=== PATIENT | female | born 1980 | race African-American/Black ===

== ENCOUNTER 2017-11-06 02:27 | Emergency (ER) | payer MEDICAID ==
[~2017-11-06] VITALS: Ht 170.2 cm; Wt 69.0 kg
[~2017-11-06 02:27] MED LIST: ASCO500T20 PO; FERR325T23 PO; FOLI-43 PO; KEPP500 PO; PHEN100C4 PO; THIA100T72 PO; TIZA4TAB4 PO
[2017-11-06] MEDS ORDERED: TETANUS, DIPHTHERIA, PERTUSSIS VAC/PF 0.5ML (>7YR OLD) IM ONE (03:00)
[2017-11-06] MEDS ORDERED: ACETAMINOPHEN 325MG TABLET PO ONE (03:15)
[2017-11-06] MEDS ORDERED: HYDROCODONE/ACETAMINOPHEN 5/325MG TABLET PO ONE ×2 (06:30→08:45)
[2017-11-06 09:10] VITALS: BP 132/101
== END 2017-11-06 09:20 | disposition home or self-care (01) ==
LOC: ER 02:54
DX: S02.2XXA Fracture of nasal bones, initial encounter for closed fracture (principal); S01.21XA Laceration without foreign body of nose, initial encounter; S01.81XA Laceration without foreign body of other part of head, initial encounter; S05.41XA Penetrating wound of orbit with or without foreign body, right eye, initial encounter; S06.339A Contusion and laceration of cerebrum, unspecified, with loss of consciousness of unspecified duration, initial encounter; M79.601 Pain in right arm; H53.8 Other visual disturbances; N28.9 Disorder of kidney and ureter, unspecified; Z88.5 Allergy status to narcotic agent; Z88.6 Allergy status to analgesic agent; Z88.8 Allergy status to other drugs, medicaments and biological substances; Y08.89XA Assault by other specified means, initial encounter; Y93.01 Activity, walking, marching and hiking; Y92.89 Other specified places as the place of occurrence of the external cause; Y99.8 Other external cause status
CPT/HCPCS: 12015; 70450; 70486; 71045; 71250; 72125; 81025; 90471; 90715; 99284; X7700; Z7610

== ENCOUNTER 2017-11-07 07:56 | Emergency (ER) | payer MEDICAID ==
[~2017-11-07] VITALS: Ht 165.1 cm; Wt 71.0 kg
[2017-11-07] MEDS ORDERED: ONDANSETRON 4MG ODT PO ONE (09:15)
[2017-11-07] MEDS ORDERED: MORPHINE SULFATE 10 MG/ML CPJ IM ONE (09:15)
[2017-11-07] MEDS ORDERED: LORAZEPAM 0.5MG TABLET PO ONE (10:15)
[2017-11-07] MEDS ORDERED: HYDROCODONE/ACETAMINOPHEN 10/325MG TABLET PO ONE (11:15)
[2017-11-07 11:45] VITALS: BP 140/91
== END 2017-11-07 11:46 | disposition home or self-care (01) ==
LOC: ER 08:33
DX: R51 Headache (principal); M54.2 Cervicalgia; F43.10 Post-traumatic stress disorder, unspecified; F41.9 Anxiety disorder, unspecified; G40.909 Epilepsy, unspecified, not intractable, without status epilepticus; N28.9 Disorder of kidney and ureter, unspecified; Z90.49 Acquired absence of other specified parts of digestive tract; Z87.19 Personal history of other diseases of the digestive system; Z98.84 Bariatric surgery status; Z88.5 Allergy status to narcotic agent; Y04.0XXA Assault by unarmed brawl or fight, initial encounter
CPT/HCPCS: 96372; 99284; J2270; Q0162; Z7610; A4315

== ENCOUNTER 2018-03-02 19:18 | Emergency (ER) | payer MEDICAID ==
[~2018-03-02] VITALS: Ht 180.3 cm; Wt 109.0 kg
[2018-03-02] MEDS ORDERED: KETOROLAC 60MG/2ML VIAL IM STA (21:23)
[2018-03-02 21:59] LABS: CLARITY URINE CLOUDY (CLEAR); COLOR URINE YELLOW (YELLOW); KETONES URINE TRACE (NEGATIVE); LEUKOCYTE ESTERASE URINE NEGATIVE (NEGATIVE); NITRITE URINE NEGATIVE (NEGATIVE); OCCULT BLOOD URINE NEGATIVE (NEGATIVE); PH URINE 7.5 (4.5-8.0); PROTEIN URINE 1+ (NEGATIVE); SPECIFIC GRAVITY URINE 1.026 (1.005-1.030)
[2018-03-02 22:15] LABS: *BARBITURATES SCREEN URINE NEGATIVE (NEGATIVE); OPIATES URINE SCREEN NEGATIVE (NEGATIVE); PHENCYCLIDINE URINE SCREEN NEGATIVE (NEGATIVE)
[2018-03-02 22:16] LABS: *AMPHETAMINES SCREEN URINE NEGATIVE (NEGATIVE); *BENZODIAZEPINES SCREEN URINE NEGATIVE (NEGATIVE); *COCAINE SCREEN URINE NEGATIVE (NEGATIVE); CANNABINOID URINE SCREEN PRESUMTIVE POSITIVE (NEGATIVE); METHADONE URINE SCREEN NEGATIVE (NEGATIVE)
[2018-03-02 22:17] LABS: BASOPHILS % 1.5 % (0.0-2.0); EOSINOPHILS % 1.1 % (0.0-5.0); HEMATOCRIT. 32.4 % (36.0-48.0); HEMOGLOBIN. 9.9 g/dL (12.0-16.0); LYMPHOCYTES % 41.9 % (20.0-50.0); MEAN CORPUSCULAR HEMOGLOBIN 23.9 pg (28.0-32.0); MEAN CORPUSCULAR VOLUME 77.8 fL (81.0-99.0); MEAN PLATELET VOLUME 8.2 fl (7.4-10.4); NEUTROPHILS % 42.5 % (40.0-76.0); PLATELET 254 x1000/uL (130-400); RED BLOOD CELL COUNT 4.16 mill/uL (4.2-5.4); RED CELL DISTRIBUTION WIDTH 21.6 % (11.6-14.6)
[2018-03-02 22:25] LABS: CHLORIDE 111 mEq/L (98-107)
[2018-03-02 22:31] LABS: ETHANOL BLOOD < 10 mg/dL
[2018-03-02] MEDS ORDERED: HYDROCODONE/ACETAMINOPHEN 5/325MG TABLET PO ONE (23:00)
[2018-03-03 01:38] VITALS: BP 156/84
== END 2018-03-03 01:40 | disposition home or self-care (01) ==
LOC: ER 19:18
DX: M54.5 Low back pain (principal); R10.13 Epigastric pain; R56.9 Unspecified convulsions; Z79.899 Other long term (current) drug therapy; Z88.8 Allergy status to other drugs, medicaments and biological substances; Z88.6 Allergy status to analgesic agent
CPT/HCPCS: 36415; 80053; 80305; 81003; 81025; 83690; 85025; 99283; G0482

== ENCOUNTER 2019-01-22 22:10 | Inpatient (IN) | payer MEDICAID ==
[~2019-01-22] VITALS: Ht 170.2 cm; Wt 94.3 kg
[~2019-01-22 22:10] MED LIST changes: -TIZA4TAB4 PO; +TIZA4TAB5 PO
[2019-01-22] MEDS ORDERED: KETOROLAC 30MG/ML VIAL IV STA (23:54)
[2019-01-23] MEDS ORDERED: VANCOMYCIN 1 G PREMIX 200 ML IV ONE
[2019-01-23] MEDS ORDERED: PIPERACILLIN/TAZ 3.375G PREMIX 50 ML IV ONE
[2019-01-23 01:14] LABS: CLARITY URINE CLEAR (CLEAR); COLOR URINE YELLOW (YELLOW); KETONES URINE NEGATIVE (NEGATIVE); LEUKOCYTE ESTERASE URINE NEGATIVE (NEGATIVE); NITRITE URINE NEGATIVE (NEGATIVE); OCCULT BLOOD URINE NEGATIVE (NEGATIVE); PH URINE 5.5 (4.5-8.0); PROTEIN URINE NEGATIVE (NEGATIVE); SPECIFIC GRAVITY URINE 1.006 (1.005-1.030); UROBILINOGEN URINE 0.2 E.U./dL (0.2-1.0)
[2019-01-23] MEDS ORDERED: HYDROCODONE/ACETAMINOPHEN 5/325MG TABLET PO ONE (01:15)
[2019-01-23] MEDS: SODIUM CHLORIDE 0.9% 1000ML BAG (SEPSIS BOLUS) IV ONE ×2 (01:18)
[2019-01-23 01:23] LABS: CHLORIDE 112 mEq/L (98-107)
[2019-01-23 01:24] LABS: HCG SCREEN NEGATIVE
[2019-01-23 01:26] LABS: BASOPHILS % 0.7 % (0.0-2.0); EOSINOPHILS % 4.5 % (0.0-5.0); HEMATOCRIT. 29.1 % (36.0-48.0); HEMOGLOBIN. 9.4 g/dL (12.0-16.0); LYMPHOCYTES % 36.2 % (20.0-50.0); MEAN CORPUSCULAR HEMOGLOBIN 25.9 pg (28.0-32.0); MEAN CORPUSCULAR VOLUME 80.3 fL (81.0-99.0); MONOCYTES % 12.2 % (2.0-8.0); NEUTROPHILS % 46.4 % (40.0-76.0); PLATELET 285 x1000/uL (130-400); RED BLOOD CELL COUNT 3.63 mill/uL (4.2-5.4)
[2019-01-23 01:29] LABS: ETHANOL BLOOD < 10 mg/dL
[2019-01-23 01:31] LABS: *BARBITURATES SCREEN URINE NEGATIVE (NEGATIVE)
[2019-01-23 01:32] LABS: *AMPHETAMINES SCREEN URINE NEGATIVE (NEGATIVE); *COCAINE SCREEN URINE NEGATIVE (NEGATIVE); METHADONE URINE SCREEN NEGATIVE (NEGATIVE); OPIATES URINE SCREEN NEGATIVE (NEGATIVE); PHENCYCLIDINE URINE SCREEN NEGATIVE (NEGATIVE)
[2019-01-23 01:33] LABS: CANNABINOID URINE SCREEN NEGATIVE (NEGATIVE)
[2019-01-23 01:35] LABS: *BENZODIAZEPINES SCREEN URINE PRESUMTIVE POSITIVE (NEGATIVE)
[2019-01-23 01:39] LABS: INR 1.1; PROTHROMBIN TIME 11.1 sec (9.6-11.0)
[2019-01-23 02:27] LABS: PLATELET ESTIMATE NORMAL
[2019-01-23] MEDS: HYDROCODONE/ACETAMINOPHEN 10/325MG TABLET PO PRN ×3 (05:50→19:56)
[2019-01-23] MEDS ORDERED: IPRATROPIUM/ALBUTEROL 0.5-3(2.5)MG/3ML NEB HHN PRN (07:00)
[2019-01-23] MEDS ORDERED: ONDANSETRON HCL 4MG/2ML INJ IV PRN (07:00)
[2019-01-23] MEDS ORDERED: CLONIDINE 0.1MG TABLET PO PRN (07:00)
[2019-01-23] MEDS ORDERED: MAGNESIUM/ALUMINUM HYDROXIDE/SIMETHICONE 30ML UDC PO PRN (07:00)
[2019-01-23 07:45] LABS: PHOSPHORUS 3.2 mg/dL (2.5-4.9)
[2019-01-23] MEDS ORDERED: PIPERACILLIN/TAZ 3.375G PREMIX 50 ML IV SCH (09:00)
[2019-01-23 10:00] VITALS: BP 147/84
[2019-01-23] MEDS: DIPHENHYDRAMINE 50MG/ML VIAL IV PRN ×2 (11:00→16:04)
[2019-01-23 11:10] VITALS: BP 147/84
[2019-01-23] MEDS: MORPHINE SULFATE 2 MG/ML CPJ (NOT FOR IM USE) IV PRN ×2 (11:34→16:37)
[2019-01-23] MEDS: PIPERACILLIN/TAZOBACTAM 3.375 G in DEXT 5% WATER 100 ML IV SCH ×2 (13:24→17:33)
[2019-01-23] MEDS: VANCOMYCIN 1250MG in DEXTROSE 5% WATER 250ML IV SCH (14:32)
[2019-01-23] MEDS: LEVETIRACETAM 500MG TABLET PO SCH (14:32)
[2019-01-23 16:00] VITALS: BP 148/82
[2019-01-23] MEDS ORDERED: APIX5TAB MT (18:39)
[2019-01-23] MEDS ORDERED: LEVE750T10 MT (18:39)
[2019-01-23] MEDS ORDERED: PANT40TA4 MT (18:39)
[2019-01-23] MEDS ORDERED: TIZA4CAP6 MT (18:39)
[2019-01-23] MEDS ORDERED: GABA-531 MT (18:39)
[2019-01-23] MEDS ORDERED: FOLI-43 MT (18:39)
[2019-01-23] MEDS ORDERED: TOPUD MT (18:39)
[2019-01-23] MEDS ORDERED: CHLO25CA10 MT (18:39)
[2019-01-23] MEDS ORDERED: OXYC-105 MT (18:39)
[2019-01-23] MEDS ORDERED: THIA50TA11 MT (18:39)
[2019-01-23] MEDS ORDERED: ZOLP5TAB8 MT (18:39)
[2019-01-23] MEDS ORDERED: DIPH25CA83 MT (18:39)
[2019-01-23] MEDS ORDERED: FURO-151 MT (18:39)
[2019-01-23] MEDS ORDERED: POTA20TA82 MT (18:39)
[2019-01-23 19:54] VITALS: BP 153/99
[2019-01-23 20:00] VITALS: BP 153/99
[2019-01-23] MEDS: GABAPENTIN 300MG CAPSULE PO SCH (21:27)
[2019-01-24] VITALS (7 sets, daily range): BP systolic 97–158; BP diastolic 56–98
[2019-01-24] MEDS: PIPERACILLIN/TAZOBACTAM 3.375 G in DEXT 5% WATER 100 ML IV SCH ×4 (00:07→17:27)
[2019-01-24] MEDS: DIPHENHYDRAMINE 50MG/ML VIAL IV PRN ×3 (00:21→18:11)
[2019-01-24] MEDS: MORPHINE SULFATE 2 MG/ML CPJ (NOT FOR IM USE) IV PRN ×3 (00:21→18:46)
[2019-01-24] MEDS: VANCOMYCIN 1250MG in DEXTROSE 5% WATER 250ML IV SCH ×2 (01:16→14:43)
[2019-01-24] MEDS: GABAPENTIN 300MG CAPSULE PO SCH ×3 (06:44→21:39)
[2019-01-24 07:14] LABS: BASOPHILS % 0.9 % (0.0-2.0); EOSINOPHILS % 6.3 % (0.0-5.0); HEMATOCRIT. 31.4 % (36.0-48.0); LYMPHOCYTES % 34.1 % (20.0-50.0); MEAN CORPUSCULAR VOLUME 81.3 fL (81.0-99.0); MEAN PLATELET VOLUME 7.8 fl (7.4-10.4); MONOCYTES % 9.8 % (2.0-8.0); NEUTROPHILS % 48.9 % (40.0-76.0); PLATELET 309 x1000/uL (130-400); RED BLOOD CELL COUNT 3.86 mill/uL (4.2-5.4); RED CELL DISTRIBUTION WIDTH 24.8 % (11.6-14.6)
[2019-01-24 07:31] LABS: CHLORIDE 113 mEq/L (98-107)
[2019-01-24 07:46] LABS: HDL CHOLESTEROL 47 mg/dL (40-59)
[2019-01-24 07:48] LABS: LDL CHOLESTEROL 80 mg/dL (5-100)
[2019-01-24] MEDS: LEVETIRACETAM 500MG TABLET PO SCH (08:41)
[2019-01-24] MEDS: TIZANIDINE HCL 2MG TABLET PO PRN ×2 (08:42→21:39)
[2019-01-24] MEDS: HYDROCODONE/ACETAMINOPHEN 10/325MG TABLET PO PRN ×3 (08:42→21:02)
[2019-01-24] MEDS: ACETAMINOPHEN 325MG TABLET PO PRN (18:11)
[2019-01-25] VITALS: BP 104/63
[2019-01-25] MEDS: VANCOMYCIN 1250MG in DEXTROSE 5% WATER 250ML IV SCH (01:47)
[2019-01-25] MEDS: PIPERACILLIN/TAZOBACTAM 3.375 G in DEXT 5% WATER 100 ML IV SCH ×4 (01:48→18:18)
[2019-01-25 04:00] VITALS: BP 98/74
[2019-01-25] MEDS: DIPHENHYDRAMINE 50MG/ML VIAL IV PRN ×5 (04:22→21:53)
[2019-01-25] MEDS: ACETAMINOPHEN 325MG TABLET PO PRN ×3 (04:23→19:02)
[2019-01-25] MEDS: MORPHINE SULFATE 2 MG/ML CPJ (NOT FOR IM USE) IV PRN ×3 (04:32→19:13)
[2019-01-25] MEDS: GABAPENTIN 300MG CAPSULE PO SCH ×3 (05:16→22:21)
[2019-01-25 07:05] LABS: BASOPHILS % 0.5 % (0.0-2.0); EOSINOPHILS % 6.2 % (0.0-5.0); HEMATOCRIT. 30.2 % (36.0-48.0); HEMOGLOBIN. 9.5 g/dL (12.0-16.0); MEAN CORPUSCULAR HEMOGLOBIN 25.8 pg (28.0-32.0); MEAN CORPUSCULAR VOLUME 81.5 fL (81.0-99.0); MEAN PLATELET VOLUME 8.1 fl (7.4-10.4); MONOCYTES % 10.2 % (2.0-8.0); NEUTROPHILS % 50.1 % (40.0-76.0); PLATELET 289 x1000/uL (130-400); RED CELL DISTRIBUTION WIDTH 24.5 % (11.6-14.6)
[2019-01-25 07:33] LABS: CHLORIDE 109 mEq/L (98-107)
[2019-01-25 08:00] VITALS: BP 105/43
[2019-01-25] MEDS: LEVETIRACETAM 500MG TABLET PO SCH (08:26)
[2019-01-25] MEDS: HYDROCODONE/ACETAMINOPHEN 10/325MG TABLET PO PRN ×2 (08:28→16:21)
[2019-01-25 12:00] VITALS: BP 106/71
[2019-01-25] MEDS: HYDROMORPHONE HCL/PF 2MG/ML CPJ IV PRN ×2 (14:45→21:52)
[2019-01-25 16:00] VITALS: BP 109/64
[2019-01-25] MEDS: VANCOMYCIN 750 MG PREMIX 150 ML IV SCH (21:04)
[2019-01-25] MEDS: TIZANIDINE HCL 2MG TABLET PO PRN (22:21)
[2019-01-26] VITALS: BP 90/49
[2019-01-26] MEDS: PIPERACILLIN/TAZOBACTAM 3.375 G in DEXT 5% WATER 100 ML IV SCH ×5 (00:21→23:15)
[2019-01-26 04:00] VITALS: BP 101/59
[2019-01-26] MEDS: HYDROCODONE/ACETAMINOPHEN 10/325MG TABLET PO PRN ×3 (04:51→19:44)
[2019-01-26] MEDS: GABAPENTIN 300MG CAPSULE PO SCH ×3 (06:03→22:11)
[2019-01-26 06:31] LABS: CHLORIDE 111 mEq/L (98-107)
[2019-01-26 06:42] LABS: BASOPHILS % 0.9 % (0.0-2.0); EOSINOPHILS % 6.6 % (0.0-5.0); HEMATOCRIT. 27.7 % (36.0-48.0); LYMPHOCYTES % 31.1 % (20.0-50.0); MEAN CORPUSCULAR HEMOGLOBIN 26.4 pg (28.0-32.0); MEAN CORPUSCULAR VOLUME 81.1 fL (81.0-99.0); MEAN PLATELET VOLUME 7.8 fl (7.4-10.4); MONOCYTES % 8.7 % (2.0-8.0); NEUTROPHILS % 52.7 % (40.0-76.0); PLATELET 293 x1000/uL (130-400); RED BLOOD CELL COUNT 3.41 mill/uL (4.2-5.4); RED CELL DISTRIBUTION WIDTH 24.3 % (11.6-14.6)
[2019-01-26 08:00] VITALS: BP_SYST 103; BP_SYST 109; BP_DIAS 71
[2019-01-26] MEDS: DIPHENHYDRAMINE 50MG/ML VIAL IV PRN ×4 (08:54→22:11)
[2019-01-26] MEDS: HYDROMORPHONE HCL/PF 2MG/ML CPJ IV PRN ×4 (08:54→22:12)
[2019-01-26] MEDS: VANCOMYCIN 750 MG PREMIX 150 ML IV SCH ×2 (08:57→20:07)
[2019-01-26] MEDS: LEVETIRACETAM 500MG TABLET PO SCH (08:58)
[2019-01-26 12:00] VITALS: BP 109/71
[2019-01-26 16:00] VITALS: BP 114/66
[2019-01-26 20:00] VITALS: BP 119/72
[2019-01-26] MEDS: TIZANIDINE HCL 2MG TABLET PO PRN (22:12)
[2019-01-27] VITALS: BP 94/53
[2019-01-27] MEDS: HYDROMORPHONE HCL/PF 2MG/ML CPJ IV PRN ×4 (02:59→21:35)
[2019-01-27 04:00] VITALS: BP 98/59
[2019-01-27] MEDS: GABAPENTIN 300MG CAPSULE PO SCH ×3 (05:23→20:30)
[2019-01-27] MEDS: HYDROCODONE/ACETAMINOPHEN 10/325MG TABLET PO PRN ×4 (05:23→20:30)
[2019-01-27] MEDS: PIPERACILLIN/TAZOBACTAM 3.375 G in DEXT 5% WATER 100 ML IV SCH (05:23)
[2019-01-27 08:00] VITALS: BP 95/59
[2019-01-27] MEDS: LEVETIRACETAM 500MG TABLET PO SCH (08:41)
[2019-01-27] MEDS: DIPHENHYDRAMINE 50MG/ML VIAL IV PRN ×3 (10:03→21:35)
[2019-01-27] MEDS: VANCOMYCIN 750 MG PREMIX 150 ML IV SCH ×2 (11:07→20:30)
[2019-01-27 12:00] VITALS: BP 110/69
[2019-01-27 16:30] VITALS: BP 117/76
[2019-01-27] MEDS ORDERED: HYDROMORPHONE HCL/PF 2MG/ML CPJ IM PRN (18:00)
[2019-01-27 20:00] VITALS: BP 107/75
[2019-01-27] MEDS: TIZANIDINE HCL 2MG TABLET PO PRN (22:40)
[2019-01-28] VITALS: BP 99/57
[2019-01-28 04:01] VITALS: BP 106/61
[2019-01-28] MEDS: GABAPENTIN 300MG CAPSULE PO SCH ×3 (05:05→21:13)
[2019-01-28] MEDS: DIPHENHYDRAMINE 50MG/ML VIAL IV PRN ×5 (05:05→21:44)
[2019-01-28] MEDS: HYDROMORPHONE HCL/PF 2MG/ML CPJ IV PRN ×5 (05:06→21:45)
[2019-01-28 08:00] VITALS: BP 110/60
[2019-01-28] MEDS: VANCOMYCIN 750 MG PREMIX 150 ML IV SCH ×2 (08:01→21:43)
[2019-01-28] MEDS: LEVETIRACETAM 500MG TABLET PO SCH (09:10)
[2019-01-28] MEDS: HYDROCODONE/ACETAMINOPHEN 10/325MG TABLET PO PRN ×3 (11:41→20:12)
[2019-01-28 12:00] VITALS: BP 112/70
[2019-01-28 15:52] VITALS: BP 122/70
[2019-01-28 20:09] VITALS: BP 147/97
[2019-01-28] MEDS: TIZANIDINE HCL 2MG TABLET PO PRN (21:42)
[2019-01-29 00:23] VITALS: BP 98/60
[2019-01-29 04:00] VITALS: BP 116/69
[2019-01-29] MEDS: DIPHENHYDRAMINE 50MG/ML VIAL IV PRN ×5 (04:11→21:41)
[2019-01-29] MEDS: HYDROMORPHONE HCL/PF 2MG/ML CPJ IV PRN ×5 (04:12→21:41)
[2019-01-29] MEDS: GABAPENTIN 300MG CAPSULE PO SCH ×3 (05:37→21:41)
[2019-01-29] MEDS: HYDROCODONE/ACETAMINOPHEN 10/325MG TABLET PO PRN ×4 (06:02→18:36)
[2019-01-29 08:00] VITALS: BP 119/79
[2019-01-29] MEDS: LEVETIRACETAM 500MG TABLET PO SCH (08:36)
[2019-01-29] MEDS: VANCOMYCIN 750 MG PREMIX 150 ML IV SCH ×2 (10:10→21:41)
[2019-01-29 11:42] LABS: BASOPHILS % 0.9 % (0.0-2.0); EOSINOPHILS % 5.1 % (0.0-5.0); HEMATOCRIT. 31.3 % (36.0-48.0); HEMOGLOBIN. 10.2 g/dL (12.0-16.0); LYMPHOCYTES % 41.4 % (20.0-50.0); MEAN CORPUSCULAR HEMOGLOBIN 26.4 pg (28.0-32.0); MEAN CORPUSCULAR VOLUME 81.2 fL (81.0-99.0); MONOCYTES % 13.3 % (2.0-8.0); NEUTROPHILS % 39.3 % (40.0-76.0); PLATELET 338 x1000/uL (130-400); RED BLOOD CELL COUNT 3.86 mill/uL (4.2-5.4); RED CELL DISTRIBUTION WIDTH 23.7 % (11.6-14.6)
[2019-01-29 12:00] VITALS: BP 137/83
[2019-01-29 16:00] VITALS: BP_SYST 119; BP_SYST 135; BP_DIAS 76; BP_DIAS 79
[2019-01-29 20:00] VITALS: BP 123/81
[2019-01-30 01:12] VITALS: BP 128/80
[2019-01-30] MEDS: DIPHENHYDRAMINE 50MG/ML VIAL IV PRN ×3 (01:15→10:23)
[2019-01-30] MEDS: TIZANIDINE HCL 2MG TABLET PO PRN (01:15)
[2019-01-30] MEDS: HYDROMORPHONE HCL/PF 2MG/ML CPJ IV PRN ×3 (01:15→10:24)
[2019-01-30 04:00] VITALS: BP 100/64
[2019-01-30] MEDS: GABAPENTIN 300MG CAPSULE PO SCH ×2 (06:09→13:31)
[2019-01-30 08:00] VITALS: BP 110/74
[2019-01-30] MEDS: LEVETIRACETAM 500MG TABLET PO SCH (09:08)
[2019-01-30 12:00] VITALS: BP 124/78
[2019-01-30] MEDS ORDERED: AMOX1TAB16 PO (14:14)
[2019-01-30] MEDS ORDERED: DOXY100C2 PO (14:14)
[2019-01-30] MEDS ORDERED: DOXYCYCLINE HYCLATE 100MG CAPSULE PO SCH (14:30)
[2019-01-30] MEDS ORDERED: HYDROCODONE/ACETAMINOPHEN 10/325MG TABLET PO PRN (14:45)
[2019-01-30 15:52] VITALS: BP 124/78
[2019-01-30 16:00] VITALS: BP 129/74
[2019-01-30] MEDS ORDERED: AMOXICILLIN/POTASSIUM CLAVULANATE 875/125MG TAB PO SCH (21:00)
== END 2019-01-30 18:50 | DRG 383 ==
LOC: ER 22:10 → 8WST 01-23 02:03 → EDBEDREQ 01-23 02:09 → EDBEDREQTM 01-23 02:09 → EDBEDREQDT 01-23 02:09 → ENRESERV 01-23 07:32
PROVIDERS: ADMIT Internal Medicine; ATTEND Internal Medicine
DX: L03.116 Cellulitis of left lower limb (principal); E44.0 Moderate protein-calorie malnutrition; K86.1 Other chronic pancreatitis; M10.9 Gout, unspecified; D50.9 Iron deficiency anemia, unspecified; F11.99 Opioid use, unspecified with unspecified opioid-induced disorder; G40.909 Epilepsy, unspecified, not intractable, without status epilepticus; F32.9 Major depressive disorder, single episode, unspecified; Z84.1 Family history of disorders of kidney and ureter; Z74.01 Bed confinement status; Z98.84 Bariatric surgery status; Z79.2 Long term (current) use of antibiotics; Z79.899 Other long term (current) drug therapy; Z88.8 Allergy status to other drugs, medicaments and biological substances; Z88.6 Allergy status to analgesic agent; Z98.891 History of uterine scar from previous surgery
CPT/HCPCS: 36415; 71045; 73590; 73630; 73700; 80048; 80053; 80061; 80202; 80305; 80320; 81003; 83605; 83735; 84100; 84145; 84443; 84703; 85025; 85651; 86140; 86850; 86900; 93005; 93970; 96365; 96366; 96375; 97116; 97162; 97166; 97535; 99291; A6261; C1893; J1170; J1200; J1885; J2270; J2543; J3370; J7030; J7040; J7060; G0480

== ENCOUNTER 2019-07-15 16:13 | Emergency (ER) | payer MEDICAID ==
[~2019-07-15] VITALS: Ht 170.2 cm; Wt 86.0 kg
[~2019-07-15 16:13] MED LIST changes: +AMOX1TAB16 PO; +APIX5TAB MT; +CHLO25CA10 MT; +DIPH25CA83 MT; +DOXY100C2 PO; +FOLI-43 MT; +FURO-151 MT; +GABA-531 MT; +OXYC-105 MT; +PANT40TA4 MT; +POTA20TA82 MT; +THIA50TA11 MT; +TIZA4CAP6 MT; +TOPUD MT; +ZOLP5TAB8 MT
[2019-07-15] MEDS ORDERED: ACETAMINOPHEN 325MG TABLET PO STA (17:14)
[2019-07-15] MEDS ORDERED: LEVETIRACETAM 250MG TABLET PO ONE (17:15)
[2019-07-15] MEDS ORDERED: LEVETIRACETAM 500MG TABLET PO NR (17:30)
[2019-07-15] MEDS ORDERED: HYDROCODONE/ACETAMINOPHEN 5/325MG TABLET PO ONE ×2 (18:30→19:45)
[2019-07-15 18:41] LABS: CHLORIDE 112 mEq/L (98-107)
[2019-07-15 18:42] LABS: BASOPHILS % 0.5 % (0.0-2.0); EOSINOPHILS % 2.2 % (0.0-5.0); HEMATOCRIT. 34.8 % (36.0-48.0); HEMOGLOBIN. 11.2 g/dL (12.0-16.0); LYMPHOCYTES % 36.5 % (20.0-50.0); MEAN CORPUSCULAR HEMOGLOBIN 27.6 pg (28.0-32.0); MEAN CORPUSCULAR VOLUME 85.7 fL (81.0-99.0); MEAN PLATELET VOLUME 8.1 fl (7.4-10.4); MONOCYTES % 9.3 % (2.0-8.0); NEUTROPHILS % 51.5 % (40.0-76.0); PLATELET 287 x1000/uL (130-400); RED BLOOD CELL COUNT 4.07 mill/uL (4.2-5.4); RED CELL DISTRIBUTION WIDTH 18.6 % (11.6-14.6)
[2019-07-15 18:44] LABS: HCG SCREEN NEGATIVE
[2019-07-15] MEDS ORDERED: PHENYTOIN SODIUM EXTENDED 100MG CAPSULE PO ONE (19:00)
[2019-07-15 20:07] VITALS: BP 144/83
== END 2019-07-15 20:26 | disposition home or self-care (01) ==
LOC: ER 16:13
DX: S93.492A Sprain of other ligament of left ankle, initial encounter (principal); R56.9 Unspecified convulsions; X58.XXXA Exposure to other specified factors, initial encounter; Y93.89 Activity, other specified; Y92.89 Other specified places as the place of occurrence of the external cause; Y99.8 Other external cause status; F32.9 Major depressive disorder, single episode, unspecified; F14.10 Cocaine abuse, uncomplicated; F12.10 Cannabis abuse, uncomplicated; Z98.890 Other specified postprocedural states; Z79.899 Other long term (current) drug therapy; Z88.6 Allergy status to analgesic agent; Z88.5 Allergy status to narcotic agent
CPT/HCPCS: 36415; 73610; 80053; 80185; 84703; 85025; 93005; 99285

== ENCOUNTER 2019-08-21 04:54 | Emergency (ER) | payer MEDICAID ==
[~2019-08-21] VITALS: Ht 170.2 cm; Wt 79.0 kg
[2019-08-21] MEDS ORDERED: HYDROCODONE/ACETAMINOPHEN 5/325MG TABLET PO ONE (05:00)
[2019-08-21] MEDS ORDERED: METHOCARBAMOL 750MG TABLET PO SCH (05:15)
[2019-08-21 07:35] VITALS: BP 148/78
== END 2019-08-21 07:38 | disposition home or self-care (01) ==
LOC: ER 04:54
DX: S09.90XA Unspecified injury of head, initial encounter (principal); I10 Essential (primary) hypertension; Z79.899 Other long term (current) drug therapy; Z88.6 Allergy status to analgesic agent; W01.0XXA Fall on same level from slipping, tripping and stumbling without subsequent striking against object, initial encounter; Y93.89 Activity, other specified; Y92.89 Other specified places as the place of occurrence of the external cause; Y99.8 Other external cause status
CPT/HCPCS: 72100; 81025; 99283

== ENCOUNTER 2019-08-21 07:22 | Emergency (ER) | payer MEDICAID ==
[~2019-08-21] VITALS: Ht 170.2 cm; Wt 100.0 kg
[2019-08-21] MEDS ORDERED: ACETAMINOPHEN 325MG TABLET PO STA (08:36)
[2019-08-21] MEDS ORDERED: SODIUM CHLORIDE 0.9% 1,000 ML IV ONE (08:36)
[2019-08-21] MEDS ORDERED: LEVETIRACETAM 500MG PREMIX 100 ML IV ONE (08:45)
[2019-08-21 09:15] LABS: BASOPHILS % 1.8 % (0.0-2.0); EOSINOPHILS % 2.8 % (0.0-5.0); HEMATOCRIT. 31.8 % (36.0-48.0); HEMOGLOBIN. 10.3 g/dL (12.0-16.0); LYMPHOCYTES % 43.3 % (20.0-50.0); MEAN CORPUSCULAR HEMOGLOBIN 27.3 pg (28.0-32.0); MEAN CORPUSCULAR VOLUME 84.7 fL (81.0-99.0); MEAN PLATELET VOLUME 8.1 fl (7.4-10.4); MONOCYTES % 10.9 % (2.0-8.0); NEUTROPHILS % 41.2 % (40.0-76.0); PLATELET 256 x1000/uL (130-400); RED BLOOD CELL COUNT 3.76 mill/uL (4.2-5.4); RED CELL DISTRIBUTION WIDTH 17.6 % (11.6-14.6)
[2019-08-21 09:17] LABS: CHLORIDE 111 mEq/L (98-107)
[2019-08-21 09:20] LABS: ETHANOL BLOOD 28 mg/dL
[2019-08-21] MEDS ORDERED: LEVETIRACETAM 500MG TABLET PO ONE (09:30)
[2019-08-21 09:51] LABS: *BARBITURATES SCREEN URINE NEGATIVE (NEGATIVE); *BENZODIAZEPINES SCREEN URINE NEGATIVE (NEGATIVE); METHADONE URINE SCREEN NEGATIVE (NEGATIVE)
[2019-08-21 09:52] LABS: *AMPHETAMINES SCREEN URINE NEGATIVE (NEGATIVE); PHENCYCLIDINE URINE SCREEN NEGATIVE (NEGATIVE)
[2019-08-21 09:54] LABS: *COCAINE SCREEN URINE PRESUMTIVE POSITIVE (NEGATIVE); CANNABINOID URINE SCREEN PRESUMTIVE POSITIVE (NEGATIVE); OPIATES URINE SCREEN PRESUMTIVE POSITIVE (NEGATIVE)
[2019-08-21 10:33] VITALS: BP 178/111
[2019-08-21] MEDS ORDERED: PHENYTOIN SODIUM EXTENDED 100MG CAPSULE PO ONE (10:45)
[2019-08-21] MEDS ORDERED: POTASSIUM CHLORIDE 20MEQ TABLET SR PO ONE (10:45)
== END 2019-08-21 10:53 | disposition home or self-care (01) ==
LOC: ER 07:22
DX: R56.9 Unspecified convulsions (principal); M25.572 Pain in left ankle and joints of left foot; I10 Essential (primary) hypertension; Z79.899 Other long term (current) drug therapy
CPT/HCPCS: 36415; 73610; 80053; 80185; 80305; 80320; 81025; 85025; 93005; 99285; J7030; G0480

== ENCOUNTER 2019-12-14 12:57 | Emergency (ER) | payer MEDICAID ==
[~2019-12-14] VITALS: Ht 165.1 cm; Wt 60.0 kg
[2019-12-14] MEDS ORDERED: ACETAMINOPHEN 325MG TABLET PO ONE (13:45)
[2019-12-14] MEDS ORDERED: ONDANSETRON HCL 4MG/2ML INJ IV STA (13:53)
[2019-12-14] MEDS ORDERED: PANTOPRAZOLE SODIUM 40 MG/VIAL IV ONE (14:00)
[2019-12-14] MEDS ORDERED: SODIUM CHLORIDE 0.9% 1,000 ML IV ONE (14:00)
[2019-12-14 14:53] LABS: BASOPHILS % 0.8 % (0.0-2.0); EOSINOPHILS % 3.2 % (0.0-5.0); HEMATOCRIT. 27.4 % (36.0-48.0); LYMPHOCYTES % 50.4 % (20.0-50.0); MEAN CORPUSCULAR HEMOGLOBIN 31.8 pg (28.0-32.0); MEAN CORPUSCULAR VOLUME 96.4 fL (81.0-99.0); MEAN PLATELET VOLUME 6.8 fl (7.4-10.4); MONOCYTES % 10.6 % (2.0-8.0); PLATELET 326 x1000/uL (130-400); RED BLOOD CELL COUNT 2.84 mill/uL (4.2-5.4); RED CELL DISTRIBUTION WIDTH 19.8 % (11.6-14.6)
[2019-12-14 14:58] LABS: CHLORIDE 114 mEq/L (98-107)
[2019-12-14 15:00] LABS: INR 1.1; PROTHROMBIN TIME 11.9 sec (9.6-11.0)
[2019-12-14 15:24] LABS: CLARITY URINE CLEAR (CLEAR); COLOR URINE DARK YELLOW (YELLOW); KETONES URINE NEGATIVE (NEGATIVE); LEUKOCYTE ESTERASE URINE NEGATIVE (NEGATIVE); NITRITE URINE NEGATIVE (NEGATIVE); OCCULT BLOOD URINE NEGATIVE (NEGATIVE); PROTEIN URINE TRACE (NEGATIVE); SPECIFIC GRAVITY URINE 1.044 (1.005-1.030)
[2019-12-14] MEDS ORDERED: ACETAMINOPHEN 325MG TABLET PO SCH (15:30)
[2019-12-14] MEDS ORDERED: HYDROCODONE/ACETAMINOPHEN 5/325MG TABLET PO STA ×2 (15:37→17:06)
[2019-12-14] MEDS ORDERED: GABAPENTIN 300MG CAPSULE PO STA (18:54)
[2019-12-14 19:04] VITALS: BP 112/70
== END 2019-12-14 19:25 | disposition home or self-care (01) ==
LOC: ER 12:57
DX: R10.13 Epigastric pain (principal); D64.9 Anemia, unspecified; I10 Essential (primary) hypertension; K21.9 Gastro-esophageal reflux disease without esophagitis; Z88.6 Allergy status to analgesic agent; Z79.899 Other long term (current) drug therapy
CPT/HCPCS: 36415; 71045; 76705; 80053; 81003; 81025; 82270; 83690; 85025; 85610; 96374; 96375; 99285; C9113; J2405; J7030

== ENCOUNTER 2019-12-25 09:12 | Emergency (ER) | payer MEDICAID ==
[~2019-12-25] VITALS: Ht 172.7 cm; Wt 86.0 kg
[2019-12-25] MEDS ORDERED: HYDROCODONE/ACETAMINOPHEN 5/325MG TABLET PO ONE (10:00)
[2019-12-25] MEDS ORDERED: LEVETIRACETAM 500MG PREMIX 100 ML IV ONE (10:00)
[2019-12-25 11:40] LABS: BASOPHILS % 0.3 % (0.0-2.0); EOSINOPHILS % 1.1 % (0.0-5.0); HEMATOCRIT. 28.3 % (36.0-48.0); HEMOGLOBIN. 9.2 g/dL (12.0-16.0); LYMPHOCYTES % 21.4 % (20.0-50.0); MEAN CORPUSCULAR HEMOGLOBIN 32.4 pg (28.0-32.0); MEAN CORPUSCULAR VOLUME 100.1 fL (81.0-99.0); MEAN PLATELET VOLUME 7.9 fl (7.4-10.4); MONOCYTES % 6.3 % (2.0-8.0); NEUTROPHILS % 70.9 % (40.0-76.0); PLATELET 199 x1000/uL (130-400); RED BLOOD CELL COUNT 2.83 mill/uL (4.2-5.4); RED CELL DISTRIBUTION WIDTH 17.1 % (11.6-14.6)
[2019-12-25 11:42] LABS: CHLORIDE 115 mEq/L (98-107)
[2019-12-25] MEDS ORDERED: POTASSIUM CHLORIDE 20MEQ TABLET SR PO ONE (12:00)
[2019-12-25 12:15] LABS: HCG SCREEN NEGATIVE
[2019-12-25 13:54] VITALS: BP 137/83
== END 2019-12-25 13:54 | disposition home or self-care (01) ==
LOC: ER 09:12
DX: S93.402A Sprain of unspecified ligament of left ankle, initial encounter (principal); R56.9 Unspecified convulsions; M54.5 Low back pain; E87.6 Hypokalemia; I10 Essential (primary) hypertension; Z88.6 Allergy status to analgesic agent; Z79.899 Other long term (current) drug therapy; Z88.8 Allergy status to other drugs, medicaments and biological substances; W18.30XA Fall on same level, unspecified, initial encounter; Y93.89 Activity, other specified; Y92.89 Other specified places as the place of occurrence of the external cause; Y99.8 Other external cause status
CPT/HCPCS: 36415; 72100; 73610; 80053; 84703; 85025; 93005; 96365; 99285; J1953

== ENCOUNTER 2020-02-11 12:49 | Emergency (ER) | payer MEDICAID ==
[~2020-02-11] VITALS: Ht 175.3 cm; Wt 82.0 kg
[2020-02-11 12:55] VITALS: BP 112/64
[2020-02-11] MEDS ORDERED: FAMOTIDINE 20MG/2ML VIAL IV STA (14:20)
[2020-02-11] MEDS ORDERED: ONDANSETRON HCL 4MG/2ML INJ IV STA (14:20)
[2020-02-11 14:25] LABS: CHLORIDE 116 mEq/L (98-107)
[2020-02-11 14:27] LABS: BASOPHILS % 0.9 % (0.0-2.0); EOSINOPHILS % 0.1 % (0.0-5.0); HEMATOCRIT. 34.6 % (36.0-48.0); HEMOGLOBIN. 11.2 g/dL (12.0-16.0); MEAN CORPUSCULAR HEMOGLOBIN 31.2 pg (28.0-32.0); MEAN CORPUSCULAR VOLUME 96.3 fL (81.0-99.0); MEAN PLATELET VOLUME 8.1 fl (7.4-10.4); PLATELET 302 x1000/uL (130-400); RED BLOOD CELL COUNT 3.59 mill/uL (4.2-5.4)
[2020-02-11 14:28] LABS: ETHANOL BLOOD 207 mg/dL
[2020-02-11] MEDS ORDERED: SODIUM CHLORIDE 0.9% 1,000 ML IV ONE (14:30)
[2020-02-11 14:38] LABS: HCG SCREEN NEGATIVE
[2020-02-11 14:41] LABS: INR 1.1; PROTHROMBIN TIME 11.5 sec (9.6-11.0)
[2020-02-11 14:43] LABS: CLARITY URINE CLOUDY (CLEAR); COLOR URINE DARK YELLOW (YELLOW); KETONES URINE NEGATIVE (NEGATIVE); LEUKOCYTE ESTERASE URINE NEGATIVE (NEGATIVE); NITRITE URINE NEGATIVE (NEGATIVE); OCCULT BLOOD URINE NEGATIVE (NEGATIVE); PROTEIN URINE 1+ (NEGATIVE); SPECIFIC GRAVITY URINE 1.028 (1.005-1.030)
[2020-02-11 15:08] LABS: *AMPHETAMINES SCREEN URINE NEGATIVE (NEGATIVE); *BARBITURATES SCREEN URINE NEGATIVE (NEGATIVE); *BENZODIAZEPINES SCREEN URINE NEGATIVE (NEGATIVE); *COCAINE SCREEN URINE NEGATIVE (NEGATIVE)
[2020-02-11 15:09] LABS: CANNABINOID URINE SCREEN NEGATIVE (NEGATIVE); METHADONE URINE SCREEN NEGATIVE (NEGATIVE); PHENCYCLIDINE URINE SCREEN NEGATIVE (NEGATIVE)
[2020-02-11 15:22] LABS: OPIATES URINE SCREEN PRESUMTIVE POSITIVE (NEGATIVE)
== END 2020-02-11 15:00 | disposition left against medical advice (07) ==
LOC: ER 12:49
DX: R10.13 Epigastric pain (principal); R11.10 Vomiting, unspecified; K21.9 Gastro-esophageal reflux disease without esophagitis; I12.9 Hypertensive chronic kidney disease with stage 1 through stage 4 chronic kidney disease, or unspecified chronic kidney disease; N18.9 Chronic kidney disease, unspecified; G40.909 Epilepsy, unspecified, not intractable, without status epilepticus; F12.10 Cannabis abuse, uncomplicated; F10.10 Alcohol abuse, uncomplicated; Y90.7 Blood alcohol level of 200-239 mg/100 ml; Z86.73 Personal history of transient ischemic attack (TIA), and cerebral infarction without residual deficits; Z98.84 Bariatric surgery status; Z88.6 Allergy status to analgesic agent; Z88.5 Allergy status to narcotic agent; Z88.8 Allergy status to other drugs, medicaments and biological substances
CPT/HCPCS: 36415; 80053; 80305; 80320; 81003; 83690; 84484; 84703; 85025; 85610; 93005; 99284; J7030; J2405; J3490; G0480

== ENCOUNTER 2020-03-01 16:18 | Emergency (ER) | payer MEDICAID ==
[~2020-03-01] VITALS: Ht 165.1 cm; Wt 68.0 kg
[2020-03-01] MEDS ORDERED: SODIUM CHLORIDE 0.9% 1,000 ML IV ONE (16:30)
[2020-03-01 19:07] LABS: BASOPHILS % 1.1 % (0.0-2.0); EOSINOPHILS % 0.1 % (0.0-5.0); HEMATOCRIT. 33.3 % (36.0-48.0); HEMOGLOBIN. 11.1 g/dL (12.0-16.0); LYMPHOCYTES % 26.3 % (20.0-50.0); MEAN CORPUSCULAR HEMOGLOBIN 32.1 pg (28.0-32.0); MEAN CORPUSCULAR VOLUME 96.3 fL (81.0-99.0); MEAN PLATELET VOLUME 7.6 fl (7.4-10.4); MONOCYTES % 6.9 % (2.0-8.0); NEUTROPHILS % 65.6 % (40.0-76.0); PLATELET 270 x1000/uL (130-400); RED BLOOD CELL COUNT 3.46 mill/uL (4.2-5.4); RED CELL DISTRIBUTION WIDTH 15.6 % (11.6-14.6)
[2020-03-01 19:14] LABS: CHLORIDE 113 mEq/L (98-107)
[2020-03-01 19:16] LABS: HCG SCREEN NEGATIVE
[2020-03-01 19:18] LABS: ETHANOL BLOOD < 10 mg/dL
[2020-03-01] MEDS ORDERED: LORAZEPAM 2MG/ML CPJ IM STA (22:50)
[2020-03-01] MEDS ORDERED: OLANZAPINE 10 MG/VIAL IM ONE (23:00)
[2020-03-02] MEDS ORDERED: OLANZAPINE 10 MG/VIAL IM SCH (02:45)
[2020-03-02 04:10] LABS: CLARITY URINE CLEAR (CLEAR); COLOR URINE YELLOW (YELLOW); KETONES URINE NEGATIVE (NEGATIVE); LEUKOCYTE ESTERASE URINE NEGATIVE (NEGATIVE); NITRITE URINE NEGATIVE (NEGATIVE); OCCULT BLOOD URINE NEGATIVE (NEGATIVE); PH URINE 7.5 (4.5-8.0); PROTEIN URINE NEGATIVE (NEGATIVE); SPECIFIC GRAVITY URINE 1.022 (1.005-1.030)
[2020-03-02] MEDS ORDERED: LORAZEPAM 2MG/ML CPJ IV ONE (04:15)
[2020-03-02] MEDS ORDERED: OLANZAPINE 10 MG/VIAL IM ONE (04:15)
[2020-03-02 04:20] LABS: *AMPHETAMINES SCREEN URINE NEGATIVE (NEGATIVE); *BARBITURATES SCREEN URINE NEGATIVE (NEGATIVE); *COCAINE SCREEN URINE NEGATIVE (NEGATIVE); METHADONE URINE SCREEN NEGATIVE (NEGATIVE)
[2020-03-02 04:21] LABS: OPIATES URINE SCREEN NEGATIVE (NEGATIVE); PHENCYCLIDINE URINE SCREEN NEGATIVE (NEGATIVE)
[2020-03-02 04:26] LABS: *BENZODIAZEPINES SCREEN URINE PRESUMTIVE POSITIVE (NEGATIVE); CANNABINOID URINE SCREEN PRESUMTIVE POSITIVE (NEGATIVE)
[2020-03-02] MEDS ORDERED: IOHEXOL-300 100 ML BOTTLE ONE (05:19)
[2020-03-02 06:07] VITALS: BP 172/71
[2020-03-02] MEDS ORDERED: HYDROMORPHONE HCL/PF 2MG/ML CPJ IV ONE (06:30)
[2020-03-02] MEDS ORDERED: ACETAMINOPHEN 325MG TABLET PO ONE (10:30)
== END 2020-03-02 12:59 | disposition home or self-care (01) ==
LOC: ER 16:18 → CANBEDREQ 03-02 12:11 → ER 03-02 12:59
DX: G89.29 Other chronic pain (principal); R10.9 Unspecified abdominal pain; F19.10 Other psychoactive substance abuse, uncomplicated; D64.9 Anemia, unspecified; Z98.84 Bariatric surgery status; R45.1 Restlessness and agitation; F15.10 Other stimulant abuse, uncomplicated; F12.10 Cannabis abuse, uncomplicated; F17.200 Nicotine dependence, unspecified, uncomplicated; Z79.899 Other long term (current) drug therapy; Z79.82 Long term (current) use of aspirin; Z88.8 Allergy status to other drugs, medicaments and biological substances; Z88.6 Allergy status to analgesic agent; Z88.5 Allergy status to narcotic agent
CPT/HCPCS: 36415; 74177; 80053; 80305; 80307; 80320; 80329; 81003; 83690; 84703; 85025; 93005; 96361; 96372; 96374; 99285; J1170; J2060; J3490; J7030; Q9967; G0480

== ENCOUNTER 2020-03-15 20:55 | Emergency (ER) | payer MEDICAID ==
[~2020-03-15] VITALS: Ht 172.7 cm; Wt 91.0 kg
[2020-03-15 21:00] VITALS: BP 166/104
[2020-03-15] MEDS ORDERED: HYDROCODONE/ACETAMINOPHEN 10/325MG TABLET PO ONE (22:00)
[2020-03-15] MEDS ORDERED: LEVETIRACETAM 500MG TABLET PO ONE (22:00)
[2020-03-15] MEDS ORDERED: CARISOPRODOL 350 MG TABLET PO ONE (22:00)
== END 2020-03-15 23:20 | disposition home or self-care (01) ==
LOC: ER 20:55
DX: Z76.0 Encounter for issue of repeat prescription (principal); G40.909 Epilepsy, unspecified, not intractable, without status epilepticus; F12.10 Cannabis abuse, uncomplicated; F15.10 Other stimulant abuse, uncomplicated; Z98.84 Bariatric surgery status; Z88.5 Allergy status to narcotic agent; Z88.8 Allergy status to other drugs, medicaments and biological substances
CPT/HCPCS: 99284

== ENCOUNTER 2020-03-30 07:28 | Emergency (ER) | payer MEDICAID ==
[~2020-03-30] VITALS: Ht 170.2 cm; Wt 84.0 kg
[~2020-03-30 07:28] MED LIST changes: -GABA-531 MT; +GABA-532 MT; -PANT40TA4 MT; +PANT40TA51 MT; -THIA50TA11 MT; +THIA50TA12 MT
[2020-03-30] MEDS ORDERED: LEVETIRACETAM 500MG TABLET PO ONE (10:30)
[2020-03-30] MEDS ORDERED: HYDROCODONE/ACETAMINOPHEN 5/325MG TABLET PO ONE (10:30)
[2020-03-30 10:53] VITALS: BP 134/90
[2020-03-30 11:03] LABS: BASOPHILS % 0.7 % (0.0-2.0); EOSINOPHILS % 1.8 % (0.0-5.0); HEMOGLOBIN. 11.2 g/dL (12.0-16.0); LYMPHOCYTES % 42.7 % (20.0-50.0); MEAN CORPUSCULAR HEMOGLOBIN 28.6 pg (28.0-32.0); MEAN CORPUSCULAR VOLUME 91.6 fL (81.0-99.0); MEAN PLATELET VOLUME 8.3 fl (7.4-10.4); MONOCYTES % 6.7 % (2.0-8.0); NEUTROPHILS % 48.1 % (40.0-76.0); PLATELET 216 x1000/uL (130-400); RED BLOOD CELL COUNT 3.94 mill/uL (4.2-5.4)
[2020-03-30 11:08] LABS: CHLORIDE 113 mEq/L (98-107)
[2020-03-30 11:18] LABS: HCG SCREEN NEGATIVE
== END 2020-03-30 12:33 | disposition home or self-care (01) ==
LOC: ER 07:41
DX: G40.909 Epilepsy, unspecified, not intractable, without status epilepticus (principal); D72.819 Decreased white blood cell count, unspecified; M79.605 Pain in left leg; F12.10 Cannabis abuse, uncomplicated; F15.10 Other stimulant abuse, uncomplicated; Z79.899 Other long term (current) drug therapy; Z98.890 Other specified postprocedural states; Z88.6 Allergy status to analgesic agent; Z88.8 Allergy status to other drugs, medicaments and biological substances; Z87.19 Personal history of other diseases of the digestive system
CPT/HCPCS: 36415; 80053; 84703; 85025; 93005; 99284

== ENCOUNTER 2020-04-18 23:07 | Emergency (ER) | payer MEDICAID ==
[~2020-04-18] VITALS: Ht 165.1 cm; Wt 65.0 kg
[2020-04-18] MEDS ORDERED: ACETAMINOPHEN 325MG TABLET PO ONE (23:45)
[2020-04-18] MEDS ORDERED: FLUORESCEIN SODIUM 1MG/STRIP LEFTEYE ONE (23:45)
[2020-04-19] MEDS ORDERED: HYDROCODONE/ACETAMINOPHEN 10/325MG TABLET PO ONE (00:15)
[2020-04-19 02:29] VITALS: BP 130/80
== END 2020-04-19 02:29 | disposition home or self-care (01) ==
LOC: ER 23:07
DX: S09.8XXA Other specified injuries of head, initial encounter (principal); S00.12XA Contusion of left eyelid and periocular area, initial encounter; F41.9 Anxiety disorder, unspecified; R56.9 Unspecified convulsions; Y08.89XA Assault by other specified means, initial encounter; Y93.9 Activity, unspecified; Y92.9 Unspecified place or not applicable; Z88.5 Allergy status to narcotic agent; Z88.6 Allergy status to analgesic agent; Z88.8 Allergy status to other drugs, medicaments and biological substances; Z98.84 Bariatric surgery status
CPT/HCPCS: 70486; 81025; 99285

== ENCOUNTER 2021-01-07 05:01 | Emergency (ER) | payer MEDICAID, MEDICARE ==
[~2021-01-07] VITALS: Ht 170.2 cm; Wt 75.0 kg
[~2021-01-07 05:01] MED LIST changes: -DOXY100C2 PO; +DOXY100C5 PO
[2021-01-07] MEDS ORDERED: HYDROCODONE/ACETAMINOPHEN 10/325MG TABLET PO ONE (06:30)
[2021-01-07] MEDS ORDERED: AMYL1CAP59 PO (06:34)
[2021-01-07] MEDS ORDERED: SUCR1TAB PO (06:34)
[2021-01-07] MEDS ORDERED: HYDR-4009 PO (06:37)
[2021-01-07 06:55] VITALS: BP 116/75
== END 2021-01-07 07:20 | disposition home or self-care (01) ==
LOC: ER 05:01
DX: R10.9 Unspecified abdominal pain (principal); G89.29 Other chronic pain; Z76.0 Encounter for issue of repeat prescription; F41.9 Anxiety disorder, unspecified; R56.9 Unspecified convulsions; Z88.5 Allergy status to narcotic agent; Z88.6 Allergy status to analgesic agent; Z88.8 Allergy status to other drugs, medicaments and biological substances; Z98.84 Bariatric surgery status
CPT/HCPCS: 99283

== ENCOUNTER 2021-02-28 02:39 | Emergency (ER) | payer MEDICAID, MEDICARE, OTHER ==
[~2021-02-28] VITALS: Ht 170.2 cm; Wt 82.0 kg
[~2021-02-28 02:39] MED LIST changes: +AMYL1CAP59 PO; +SUCR1TAB PO
[2021-02-28 03:15] VITALS: BP 155/108
[2021-02-28] MEDS ORDERED: ONDANSETRON 4MG ODT PO STA (03:20)
[2021-02-28] MEDS ORDERED: ACETAMINOPHEN WITH CODEINE 300/30MG TABLET PO STA (03:20)
[2021-02-28] MEDS ORDERED: MAGNESIUM/ALUMINUM HYDROXIDE/SIMETHICONE 30ML UDC PO STA (03:20)
[2021-02-28] MEDS ORDERED: DICYCLOMINE 10 MG/5 ML ORAL SYR PO STA (03:20)
[2021-02-28] MEDS ORDERED: VISCOUS LIDOCAINE 2% 15 ML UDC PO STA (03:20)
[2021-02-28] MEDS ORDERED: FAMOTIDINE 20MG TABLET PO ONE (03:30)
== END 2021-02-28 04:13 | disposition left against medical advice (07) ==
LOC: ER 02:39
DX: R10.9 Unspecified abdominal pain (principal); Z76.5 Malingerer [conscious simulation]; G40.909 Epilepsy, unspecified, not intractable, without status epilepticus; F41.9 Anxiety disorder, unspecified; Z98.84 Bariatric surgery status; Z87.19 Personal history of other diseases of the digestive system; Z88.5 Allergy status to narcotic agent; Z88.8 Allergy status to other drugs, medicaments and biological substances
CPT/HCPCS: 93005; 99283; Q0162